=== PATIENT | female | born 1970 | race African-American/Black ===

== ENCOUNTER → 2021-02-16 08:31 | Outpatient (BNVA) | payer OTHER, SELFPAY | PROVIDERS: PCP Internal Medicine; Visit Provider Surgery ==

== ENCOUNTER → 2021-02-21 07:31 | Outpatient (BNVA) | payer OTHER, SELFPAY | PROVIDERS: PCP Internal Medicine; Visit Provider Surgery ==

== ENCOUNTER 2021-02-23 08:52 | Outpatient (REF) | payer OTHER, SELFPAY ==
--- NOTE | ~2021-02-23 | XR_ITS ---
EXAMINATION: XR CHEST CLINICAL INFORMATION: Obesity COMPARISON: None TECHNIQUE: 2 views of the chest were obtained. FINDINGS: The cardiac silhouette is slightly enlarged. Hilar and mediastinal contours are unremarkable. The lungs are clear. There is no pleural effusion or pneumothorax. There is mild curvature of the midthoracic spine to the right and degenerative change. XR/XR chest 2V IMPRESSION: Slightly enlarged cardiac silhouette.
--- NOTE | 2021-02-23 09:02 | ECG_ITS ---
Test Reason : OBESITY Blood Pressure : / mmHG Vent. Rate : 068 BPM Atrial Rate : 068 BPM P-R Int : 150 ms QRS Dur : 086 ms QT Int : 392 ms P-R-T Axes : 036 053 031 degrees QTc Int : 416 ms Normal sinus rhythm with sinus arrhythmia Minimal voltage criteria for LVH, may be normal variant Nonspecific T wave abnormality Abnormal ECG No previous ECGs available Referred By: Thomas Campa Electronically Signed By:DOYLE PATRICIA MD
== END 2021-02-23 08:53 | disposition home or self-care (01) ==
LOC: HO.LAB 08:52
PROVIDERS: PCP Registered Nurse; Visit Provider Surgery
DX: E03.9 Hypothyroidism, unspecified (principal); E66.9 Obesity, unspecified; I10 Essential (primary) hypertension; Z68.38 Body mass index [BMI] 38.0-38.9, adult
CPT/HCPCS: 71046; 93005

== ENCOUNTER 2021-03-03 08:42 | Outpatient (REF) | payer OTHER, SELFPAY ==
[2021-03-04 13:36] LABS: H Pylori Breath Test NOT DETECTED (NOT DETECTED)
== END 2021-03-03 08:43 | disposition home or self-care (01) ==
LOC: HO.LNP 08:42
PROVIDERS: Physician Assistant; PCP Registered Nurse; Visit Provider Physician Assistant
DX: E66.9 Obesity, unspecified (principal); Z11.0 Encounter for screening for intestinal infectious diseases
CPT/HCPCS: 83013

== ENCOUNTER → 2021-03-14 08:20 | Outpatient (BNVA) | payer OTHER, SELFPAY | PROVIDERS: PCP Registered Nurse; Visit Provider Surgery ==

== ENCOUNTER 2021-03-16 08:19 | Outpatient (REF) | payer OTHER, SELFPAY ==
--- NOTE | ~2021-03-16 | FL_ITS ---
EXAMINATION: XR GI SERIES CLINICAL INFORMATION: Obesity unspecified. COMPARISON: None TECHNIQUE: The patient was given effervescent granules mixed with water which was followed by thick and thin preparations of barium for double contrast evaluation. FINDINGS: The esophageal mucosal pattern is normal without delay in transit of barium. The gastric mucosal fold pattern is normal. The duodenal bulb and sweep are normal in appearance. There is a small hiatal hernia with an associated Schatzki ring. A large amount of gastroesophageal reflux was elicited with water siphonage to the level of the clavicular head. FLUOROSCOPY TIME: 2 minutes DOSE: 162.1 mGy FL/FL upper GI series IMPRESSION: Small hiatal hernia with a Schatzki ring. Large amount of gastroesophageal reflux with water siphonage.
--- NOTE | ~2021-03-16 | US_ITS ---
EXAMINATION: US COMPLETE ABDOMEN WITH LIVER ELASTOGRAPHY CLINICAL INFORMATION: COMPARISON: None. TECHNIQUE: Real-time imaging of the abdominal viscera. Noninvasive ultrasound liver fibrosis assessment is performed using Radha ElastPQ point quantification shear wave elastography (pSWE) with a C5-2 MHz transducer. Multiple elastography samples are obtained. FINDINGS: PANCREAS: Normal. The visualized pancreatic head and body are normal in appearance. The remainder of the pancreas is obscured from visualization by the overlying bowel gas. ABDOMINAL AORTA: The proximal, middle, and distal aortic segments are normal in caliber. INFERIOR VENA CAVA: Visualized portions are normal. LIVER: Liver echotexture is slightly increased. The liver is normal in size and contour. There are 2 small echogenic densities suggestive of calcifications in the left lobe. No other focal liver lesion is seen. There is no intrahepatic biliary duct dilatation. The right lobe measures 16.4 cm in length. The left lobe measures 11.8 cm in length. Portal flow is normal/hepatopedal Shear wave liver elastography median stiffness is 1.2 m/s (reference: normal median stiffness is 1.3 m/s or less). IQR/median stiffness to assess sampling precision is 0.13 (reference: good quality data set is IQR/median stiffness of 0.15 or less). GALLBLADDER: Gallbladder is normal in size. There are small gallstones seen in the gallbladder. There is a 1.5 x 1.2 x 1.3 cm hypoechoic lobulated lesion seen in the gallbladder. This does not move appears adherent to a gallbladder fold. This demonstrates internal vascularity and is adjacent to a echogenic focus questionable for calcification/stone. Internal vascularity makes bile sludge unlikely. Possible gallbladder wall polyp or mass should be considered. The gallbladder wall does not appear thickened. There is no pericholecystic fluid. COMMON BILE DUCT: Normal in caliber measuring 0.6 cm in diameter. RIGHT KIDNEY: Normal. No hydronephrosis. No renal calculi or focal parenchymal lesions. The kidney measures 10.9 cm in maximum dimension. LEFT KIDNEY: Normal. No hydronephrosis. No renal calculi or focal parenchymal lesions. The kidney measures 11.6 cm in maximum dimension. SPLEEN: Normal. The spleen measures 8 cm in maximum dimension. FREE FLUID: None. US/US abdomen comp w elastography IMPRESSION: 1. Slightly echogenic liver probably representing fatty infiltration. Gallstones. 1.5 x 1.2 x 1.3 cm lobulated hypoechoic lesion with internal vascularity adjacent to a gallbladder fold. Ultrasound appearance is concerning for large polyp or mass. Follow-up CT or MRI with and without contrast is recommended. 2. Liver elastography: Normal. REFERENCE: Society of Radiologists in Ultrasound Liver Stiffness Thresholds (2020): LIVER STIFFNESS THRESHOLDS: *Liver Stiffness equal or less than 1.3 m/s: High probability of being normal. *Liver Stiffness less than 1.7 m/s: In the absence of other known clinical signs, rules out compensated advanced chronic liver disease. *Liver Stiffness 1.7-2.1 m/s: Suggestive of compensated advanced chronic liver disease but need further test for confirmation. *Liver Stiffness over 2.1 m/s: Rules in compensated advanced chronic liver disease. *Liver Stiffness over 2.4 m/s: Suggestive of clinically significant portal hypertension. QUALITY OF DATA SET: *IQR/Median value equal or less than 0.15 implies a quality data set. *IQR/Median value over 0.15 implies a poor quality data set. SIGNIFICANT CHANGE FROM PRIOR EXAM: Significant change if liver stiffness measurement is 10% or greater from prior exam. OTHER CONSIDERATIONS: The stage of liver fibrosis may be overestimated in the setting of acute hepatitis, liver inflammation, elevated liver function tests, hepatic vascular congestion, obstructive cholestasis, non-fasting state, and infiltrative diseases such as amyloidosis and lymphoma. In some patients with NAFLD, the liver stiffness thresholds for compensated advanced chronic liver disease may be lower. In causes other than viral hepatitis and NAFLD, liver stiffness thresholds are not well established.
== END 2021-03-16 08:20 | disposition home or self-care (01) ==
LOC: HO.US 08:19
PROVIDERS: Visit Provider Surgery
DX: Z01.818 Encounter for other preprocedural examination (principal); E66.01 Morbid (severe) obesity due to excess calories; Z68.38 Body mass index [BMI] 38.0-38.9, adult; E03.9 Hypothyroidism, unspecified; I10 Essential (primary) hypertension; Z71.3 Dietary counseling and surveillance
CPT/HCPCS: 74240; 76705; 76981; 97802

== ENCOUNTER → 2021-03-18 09:52 | Outpatient (REF) | payer OTHER, SELFPAY ==
--- NOTE | 2021-03-18 10:02 | CA_ITS ---
Acquisition Time: 2021-03-18 10:12:57 Total Exercise Time: 00:04:23 Test Indications: PREOP, ABN EKG Medications: Protocol: EMMA Max HR: 151 BPM 87% of Pred: 172 BPM Max BP: 168/088 mmHG Max Work Load: 6.2 METS Exercise stress test with exercise 4 min 23 sec of Emma protocol with mild sob, no chest discomfort, without arrythmia, with normotensive response to exercise, with borderline EKG changes inferiorly. Test reviewed with Dr Nieto Recommend exercise nuclear stress test for further evaluation. Msg sent to Dr Raza. Referred By: Thomas Campa Overread By: BILL MUELLER
[2021-03-18 11:49] LABS: Blood Urea Nitrogen 12 mg/dL (9-16); Estimated Glomerular Filt Rate > 60
== END ==
LOC: HO.CARD 09:52
PROVIDERS: Absent Provider Physician Assistant; PCP Internal Medicine; Visit Provider Surgery
DX: Z01.818 Encounter for other preprocedural examination (principal); R06.02 Shortness of breath; I11.9 Hypertensive heart disease without heart failure; R94.31 Abnormal electrocardiogram [ECG] [EKG]; D49.0 Neoplasm of unspecified behavior of digestive system
CPT/HCPCS: 36415; 82565; 84520; 93017; 93018

== ENCOUNTER 2021-03-21 09:09 | Outpatient (REF) | payer OTHER, SELFPAY ==
--- NOTE | ~2021-03-21 | CT_ITS ---
EXAMINATION: CT ABDOMEN AND PELVIS WITH CONTRAST CLINICAL INFORMATION: Neoplasm/unspecified behavior of digestive system. Question gallbladder mass or polyp. COMPARISON: Ultrasound abdomen 03/16/2021 TECHNIQUE: Multidetector volumetric images were obtained from the superior aspect of the liver through the pubic symphysis following administration 85 mL of Omnipaque 350 intravenous contrast. Sagittal and coronal reformatted images were obtained on the technologist's workstation. Oral contrast: No. This CT examination was performed using dose optimization techniques as appropriate, variously including the following: *Automated exposure control *Adjustment of mA and/or kV according to patient size (this includes techniques or standardized protocols for targeted exams where dose is matched to indication/reason for exam; i.e. extremities or head) *Use of iterative reconstruction technique DLP: 559 mGy-cm FINDINGS: LUNG BASES: There are mild atelectatic changes in the left lung base. The heart size is normal. LIVER, GALLBLADDER, AND BILIARY TREE: The liver is normal in size, shape, and attenuation. No focal hepatic lesion or biliary ductal dilatation is present. There is a nonmobile 1.5 cm lesion along the posterior gallbladder wall in a nondependent position, question polyp or mass. There is minimal wall thickening on sagittal image 76/6. There is a punctate 1.4 cm hypodense area along the anterior gallbladder wall on axial image 26/30, question small stone. PANCREAS: Unremarkable. SPLEEN: The spleen is unremarkable. There is a small accessory splenule along the anterior hilum. ADRENAL GLANDS: Unremarkable. KIDNEYS AND URETERS: The kidneys are normal in size, shape, and attenuation. No hydronephrosis, hydroureter, or calculi seen. No perinephric stranding. BLADDER: Unremarkable. GASTROINTESTINAL TRACT: There is scattered stool, oral contrast and gas seen throughout the colon without any significant distention. There is nonspecific mild mural thickening involving a proximal small bowel segment on axial image 30 through 37/3. The small bowel loops are normal caliber. Appendix is not seen well. Small shotty lymph nodes are seen in the right ileocecal junction. ABDOMINAL WALL: No significant hernia is appreciated. LYMPH NODES: Normal. VASCULAR: Unremarkable. PELVIC VISCERA: There is an anteverted uterus with an IUD well located within fundal endometrium. There is a 2.4 x 2.4 cm cyst and a smaller 2.1 cm cyst of the right ovary. There is no free fluid in the pelvis. OSSEOUS STRUCTURES: No lytic or sclerotic process seen. CT/CT abdomen pelvis w con IMPRESSION: 1.5 cm lesion along the posterior gallbladder wall, likely polyp or mass, cannot be excluded. There is mild posterior wall thickening. In addition, there is a hypodense lesion, probable small stone, along the anterior gallbladder wall. Anteverted uterus with an IUD in the fundal endometrium. Two right ovarian cysts. Nonspecific mild mural thickening proximal ureteral segment. Question peristalsis or inflammatory process. The rest of the small bowel loops and colon is unremarkable.
[2021-03-21] MEDS: iohexoL 350 MG/ML 100 ML INFUS..BTL IV (11:59)
== END 2021-03-21 09:10 | disposition home or self-care (01) ==
LOC: HO.CT 09:09
PROVIDERS: Visit Provider Surgery
DX: D49.0 Neoplasm of unspecified behavior of digestive system (principal)
CPT/HCPCS: 74177; Q9967

== ENCOUNTER → 2021-04-04 08:14 | Outpatient (BNVA) | payer OTHER, SELFPAY | PROVIDERS: PCP Internal Medicine; Visit Provider Surgery ==

== ENCOUNTER → 2021-04-07 08:12 | Outpatient (BNVA) | payer OTHER, SELFPAY | PROVIDERS: PCP Registered Nurse; Visit Provider Dietitian, Registered ==

== ENCOUNTER → 2021-04-22 08:38 | Outpatient (BNVA) | payer OTHER, SELFPAY | PROVIDERS: PCP Registered Nurse; Visit Provider Dietitian, Registered | DX: E66.9 Obesity, unspecified (principal) | CPT/HCPCS: 97803 ==

== ENCOUNTER → 2021-04-28 08:05 | Outpatient (BNVA) | payer OTHER, SELFPAY | PROVIDERS: PCP Registered Nurse; Visit Provider Surgery ==

== ENCOUNTER → 2021-05-05 10:40 | Outpatient (REF) | payer OTHER, SELFPAY ==
--- NOTE | 2021-05-05 10:46 | CA_ITS ---
Transthoracic Echocardiogram Patient (Last, First, Middle): Melvin Lezama, Gender: Female Date of : 1970 Age: 50 Procedure Date: 05/05/2021 Procedure Type: Transthoracic Echocardiogram Location: OP Height: 162.56 cm Weight: 93.44 kg BSA: 1.98 m2 Heart Rate: bpm BP: 110 / 72 mmHg Brake Reliner: Referring MD: Thomas Campa MD Symptoms: R94.31 - Abnormal electrocardiogram [ECG] [EKG] Study Quality: Good ECG Rhythm: Sinus Conclusions: - The left ventricular systolic function is normal. The visually estimated ejection fraction is between 55-60%. - There is mild mitral valve regurgitation. Findings Left Ventricle Normal left ventricular cavity size. There is normal left ventricular wall thickness. The left ventricular systolic function is normal. The visually estimated ejection fraction is between 55-60%. There is no evidence of regional wall motion abnormalities. Diastolic function is normal for age. Right Ventricle Normal right ventricular cavity size and systolic function. Atria Both atria are normal in size. Aortic Valve There is a normal trileaflet aortic valve. There is no aortic valve stenosis. There is trace (trivial) aortic valve regurgitation. Mitral Valve There is mild anterior mitral leaflet thickening. There is mild mitral valve regurgitation. There is no mitral valve stenosis. Pulmonic Valve The pulmonic valve was not well visualized. Tricuspid Valve Normal tricuspid valve structure. There is trace tricuspid valve regurgitation. The pulmonary artery systolic pressure is normal. Great Vessels The aortic annulus, sinuses of valsalva, and asc aorta are normal in size. Venous The inferior vena cava is normal in size and collapses greater than 50% with inspiration. Pericardium/Pleural There is a trivial pericardial effusion. Prior Study Comparison No prior study available for comparison. Measurements 2D Linear Measurements RVIDd: 3.39 RVIDd Index: 1.71 IVSd: 0.90 0.6-0.9/0.6-1.0 cm LVIDd: 5.31 3.9-5.3/4.2-5.9 cm LVIDd Index: 2.68 2.4-3.2/2.2-3.1 cm/m2 LVIDs: 3.47 2.0-3.6 cm LVPWd: 1.18 0.7-1.1 cm Ao Root: 2.70 2.1-3.5 cm LA Diam: 4.50 2.7-3.8/3.0-4.0 cm LAIDs Index: 2.27 1.5-2.3 cm/m2 LV Mass: 263.17 67-162/88-224 g LV Mass Index: 132.91 43-95/49-115 g/m2 LVOT Diam: 2.20 3.0+(-)1.3 cm 2D Systolic Function EF 4C: 60.60 >55% EF 2C: 57.10 >55% EF BiP: 57.90 >55% Mitral Valve MV Pk E: 1.11 MV PK A: 1.02 MV Decel Time: 223.00 E/A: 1.10 E'Lateral: 5.22 E'Medial: 5.00 E/E' Med: 22.20 E/E' Lat: 21.30 MR Vol - PW Dopp: 34.00 MR VTI: 1.70 MR ERO: 20.00 MR Alias Yovanny: 0.32 MR RAD: 0.70 Aortic Valve AoV Pk Yovanny: 1.74 AoV Mn Yovanny: 1.21 AoV VTI: 0.39 AoV Pk Grad: 12.00 Aov Mn Grad: 7.00 BERNA[place]TE Cont.VTI: 2.32 AI Pk Yovanny: 4.15 AI [place]: 0.99 LVOT LVOT Pk Yovanny: 1.11 LVOT Mn Yovanny: 0.78 LVOT VTI: 0.24 LVOT Pk Grad: 5.00 LVOT Mn Grad: 3.00 LVOT Diam: 2.20 LVOT Area: 3.80 Diastolic Function MV Pk E: 1.11 MV Pk A: 1.02 E/A: 1.10 E'Medial: 5.00 E/E' Med: 22.20 E' Laterial: 5.22 E/E' Lat: 21.30 Tricuspid Valve TR Pk Yovanny: 2.28 TR Pk Grad: 21.00 Great Vessels Aorta Ao Root-2D: 2.70 2.0-3.7 cm Ao Asc: 3.30 2.1-3.4 cm Ao Arch: 2.70 Updated in Other Vendor System with Status of Final Camron Kumar MD electronically signed on 05/06/2021 12:45:25 PM with status of Final
[2021-05-05 12:35] LABS: MANUAL DIFF FLAG NO
[2021-05-05 12:44] LABS: Basophils Absolute Auto 0.1 X10*3/uL (0.0-0.2); Basophils Percent Auto 0.8 % (0-2); Eosinophils Absolute Auto 0.1 X10*3/uL (0.0-0.4); Eosinophils Percent Auto 0.9 % (0-4); Hematocrit 38.5 % (37-47); Hemoglobin 12.3 g/dl (12.0-16.0); Imm Gran Abs Auto 0.02 X10*3/uL (0.00-0.03); Imm Gran Pct Auto 0.3 % (0.0-0.4); Lymphocytes Absolute Auto 2.3 X10*3/uL (1.2-4.9); Lymphocytes Percent Auto 35.4 % (20-40); Mean Corpuscular HGB Conc 31.9 g/dl (31.0-35.0); Mean Corpuscular Hemoglobin 26.4 pg (27.0-33.0); Mean Corpuscular Volume 82.6 fL (80-98); Mean Platelet Volume 10.2 fL (9.4-12.3); Monocytes Absolute Auto 0.4 X10*3/uL (0.1-1.2); Monocytes Percent Auto 5.8 % (2-11); Neutrophils Absolute Auto 3.7 X10*3/uL (2.0-8.3); Neutrophils Percent Auto 56.8 % (45-73); Platelet Count 300 X10*3/uL (160-400); Red Blood Count 4.66 X10*6/uL (4.20-5.50); Red Cell Distribution Width 15.4 % (11.0-16.0); White Blood Count 6.5 X10*3/uL (4.8-10.8)
[2021-05-05 12:49] LABS: Prothrombin Time 11.7 SEC (10.8-13.0)
[2021-05-05 12:50] LABS: Estimated Average Glucose 114 mg/dL; Hemoglobin A1c % 5.6 %
[2021-05-05 12:52] LABS: Partial Thromboplastin Time 38.3 SEC (24.1-38.0)
[2021-05-05 13:15] LABS: Alanine Aminotransferase 38 U/L (0-31); Albumin Level 4.3 g/dL (3.5-5.0); Alkaline Phosphatase 80 U/L (39-117); Anion Gap 13 (12-20); Aspartate Amino Transferase 24 U/L (5-31); Blood Urea Nitrogen 14 mg/dL (9-16); C Reactive Protein 1.22 mg/dL (< or = 0.50); Calcium 9.7 mg/dL (8.4-10.2); Carbon Dioxide 30 mmol/L (22-29); Chloride 102 mmol/L (96-108); Cholesterol 199 mg/dL; Estimated Glomerular Filt Rate > 60; Glucose Random 95 mg/dL (60-115); HDL Cholesterol 89 mg/dL; LDL Cholesterol Calculated 99 mg/dl; Potassium 3.3 mmol/L (3.3-5.1); Sodium 142 mmol/L (135-145); Total Protein 7.9 g/dL (6.5-8.0); Triglycerides 57 mg/dL
[2021-05-05 13:35] LABS: Ferritin 195 ng/mL (10-250); TSH reflex Free T4 1.99 uIU/mL (0.32-4.0); Vitamin D 25-OH Total 38.7 ng/mL (>30)
[2021-05-05 13:41] LABS: Folate 5.2 ng/mL (> or = 4.0); Vitamin B12 767 pg/mL (200-900)
[2021-05-06 14:11] LABS: Calcium (PTHI) 9.7 mg/dL (8.6-10.2); PTHI 68 pg/mL (14-64)
[2021-05-06 19:04] LABS: Insulin Level Total 18.2 uIU/mL
[2021-05-08 17:27] LABS: Zinc 72 mcg/dL (60-130)
[2021-05-11 01:27] LABS: Vitamin A 48 mcg/dL (38-98)
[2021-05-13 06:57] LABS: Vitamin B1 <6 nmol/L (8-30)
== END ==
LOC: HO.CARD 10:40
PROVIDERS: Visit Provider Surgery
DX: Z01.818 Encounter for other preprocedural examination (principal); E66.9 Obesity, unspecified; E03.9 Hypothyroidism, unspecified; I10 Essential (primary) hypertension; K80.20 Calculus of gallbladder without cholecystitis without obstruction; R06.02 Shortness of breath; Z68.38 Body mass index [BMI] 38.0-38.9, adult
CPT/HCPCS: 36415; 80053; 80061; 82306; 82607; 82728; 82746; 83036; 83525; 83970; 84425; 84443; 84590; 84630; 85025; 85610; 85730; 86140; 93306

== ENCOUNTER → 2021-05-10 08:06 | Outpatient (REF) | payer OTHER, SELFPAY ==
--- NOTE | ~2021-05-10 | NM_ITS ---
Lexiscan Myocardial perfusion study Indication: Abnormal stress test Technique: The patient was brought in for a Lexiscan perfusion study on 05/10/2021 and was injected 0.4 mg of Lexiscan intravenously. Within a minute of this injection 30 mCi of sestamibi was given intravenously. Images were obtained using the SPECT gamma camera interlaced with the gating device. Images were obtained in supine position. Resting perfusion study was performed on 05/11/2021. Patient was administered 30 mCi of sestamibi intravenously at rest. Images were then obtained in supine position. Total DLP 120mGy-cm. Images were processed with the software and compared side to side in short axis, horizontal long axis and vertical long axis views. Findings: Raw acquisition was reviewed. The stress perfusion study showed mildly diminished tracer uptake along the anterior wall and apex. With CT attenuation correction, there is improvement in tracer uptake and hence suggesting soft tissue attenuation artifact. The gated study shows low normal LV systolic function with calculated LVEF of 52%. LV cavity is normal in size. The gated study shows normal wall thickening and contraction of segments. Resting study shows no significant perfusion abnormality. Gating at rest reveals normal wall motion with ejection fraction at 54%. The findings are consistent with no definite reversible or fixed defects. MT/MT cardiolite stress test Impression: 1. Myocardial perfusion imaging study shows likely normal myocardial perfusion. No definitive evidence of any ischemia or infarction. 2. Gated LVEF is 52% during stress and 54% during rest. Correlate with echocardiogram. 3. Transient ischemic dilatation not present. EKG component of the test reported separately.
--- NOTE | 2021-05-10 08:10 | CA_ITS ---
Acquisition Time: 2021-05-10 08:15:00 Total Exercise Time: 00:02:00 Test Indications: Abnormal Treadmill Test Medications: SEE CHART Protocol: LEXISCAN Max HR: 130 BPM 75% of Pred: 172 BPM Max BP: 152/092 mmHG Max Work Load: 1.6 METS Pharmacological stress test with Lexiscan injection, while walking on treadmill without anginal symptoms, with one PVC, with normotensive response to injection, with nondiagnostic EKG for ischemia. Nuclear images pending. Test reviewed with Dr Nieto. Referred By: Thomas Campa Overread By: BILL MUELLER
== END ==
LOC: HO.CARD 08:06
PROVIDERS: Visit Provider Surgery
DX: R94.39 Abnormal result of other cardiovascular function study (principal)
CPT/HCPCS: 78452; 93017; A9500; J0280; J2785

== ENCOUNTER 2021-06-02 12:39 | Day surgery (SDC) | payer OTHER, SELFPAY ==
[2021-05-27 15:11] VITALS: BMI 38.5
[2021-05-28 08:50] LABS: Basophils Percent Auto 0.4 % (0-2); Eosinophils Absolute Auto 0.1 X10*3/uL (0.0-0.4); Eosinophils Percent Auto 1.6 % (0-4); Hematocrit 37.3 % (37-47); Hemoglobin 11.9 g/dl (12.0-16.0); Imm Gran Abs Auto 0.02 X10*3/uL (0.00-0.03); Imm Gran Pct Auto 0.3 % (0.0-0.4); Lymphocytes Absolute Auto 2.6 X10*3/uL (1.2-4.9); Lymphocytes Percent Auto 33.4 % (20-40); MANUAL DIFF FLAG NO; Mean Corpuscular HGB Conc 31.9 g/dl (31.0-35.0); Mean Corpuscular Hemoglobin 26.6 pg (27.0-33.0); Mean Corpuscular Volume 83.3 fL (80-98); Mean Platelet Volume 10.5 fL (9.4-12.3); Monocytes Absolute Auto 0.6 X10*3/uL (0.1-1.2); Monocytes Percent Auto 7.9 % (2-11); Neutrophils Absolute Auto 4.3 X10*3/uL (2.0-8.3); Neutrophils Percent Auto 56.4 % (45-73); Platelet Count 273 X10*3/uL (160-400); Red Blood Count 4.48 X10*6/uL (4.20-5.50); Red Cell Distribution Width 15.2 % (11.0-16.0); White Blood Count 7.6 X10*3/uL (4.8-10.8)
[2021-05-28 09:25] LABS: Alanine Aminotransferase 27 U/L (0-31); Albumin Level 3.9 g/dL (3.5-5.0); Alkaline Phosphatase 68 U/L (39-117); Anion Gap 13 (12-20); Aspartate Amino Transferase 16 U/L (5-31); Bilirubin Total 0.8 mg/dL (0.0-1.0); Blood Urea Nitrogen 11 mg/dL (9-16); Calcium 9.3 mg/dL (8.4-10.2); Carbon Dioxide 30 mmol/L (22-29); Chloride 100 mmol/L (96-108); Creatinine Clr Calc Pharmacy 94.7; Estimated Glomerular Filt Rate > 60; Glucose Random 93 mg/dL (60-115); Potassium 3.4 mmol/L (3.3-5.1); Sodium 140 mmol/L (135-145); Total Protein 7.3 g/dL (6.5-8.0)
--- NOTE | 2021-06-01 08:41 | P.CONAN_ITS ---
Documented by User: Erica Meek 06/01/21 08:46 HPI - Anesthesia Eval Consult details Narrative: 50yo F for Cholecystectomy Laparoscopic PMFSH Active Problems Active Problems: All Active Problems (Updated 04/28/21 @ 11:34 by Thomas Campa MD) Cholelithiasis (Acute) Abnormal stress test (Acute) Morbid obesity (Acute) Adjustment disorder, unspecified (Acute) Gallbladder neoplasm (Acute) Cardiomegaly (Acute) Abnormal EKG (Acute) Vitamin B12 deficiency (Acute) Vitamin D deficiency (Acute) Panniculitis (Acute) Hypothyroidism (Acute) Back pain (Acute) Hypertension (Acute) BMI 38.0-38.9,adult (Acute) Obesity (Acute) Past Medical History Medical History Back pain Cholelithiasis Hypertension Hypothyroidism Morbid obesity Obesity Panniculitis Family History Family History Mother Diabetes Hypertension Breast cancer Father No problems noted. Sister No problems noted. Sister Hypertension Brother No problems noted. Son No problems noted. Son No problems noted. Daughter No problems noted. Daughter No problems noted. Surgical History Surgical History Hx of section Hx of toe surgery Social History Social History Patient Tobacco Use Status: Never used Tobacco Use of substances other than those prescribed or required for medical reasons: No Have you been hit, kicked, punched, or otherwise hurt by someone within the past year? If so, by whom?: No Are you DNR?: No Advance Directives Information Provided: No Meds Allergies Allergy/AdvReac Type Severity Reaction Status Date / Time lisinopril Allergy Severe cough Verified 02/21/21 12:27 Penicillins Allergy Severe hives Verified 02/21/21 12:27 Seasonal Allergies Allergy Severe itching Verified 02/21/21 12:27 Home Medications Medication Instructions Recorded Confirmed Last Taken Type amlodipine 5 mg tablet 5 mg PO DAILY 02/21/21 05/27/21 Unknown History cetirizine 10 mg tablet 10 mg PO DAILY 02/21/21 05/27/21 Unknown History hydrochlorothiazide 25 mg tablet 25 mg PO DAILY 02/21/21 05/27/21 Unknown History labetalol 200 mg tablet 200 mg PO BID 02/21/21 05/27/21 Unknown History levothyroxine 175 mcg tablet 175 mcg PO DAILY 02/21/21 05/27/21 Unknown History nystatin 100,000 unit/gram topical TOPICAL 02/21/21 04/28/21 Unknown History cream Exam Exam Date and Time: June 01, 2021 0841 Height,Weight and Vital Signs: Height 5 ft 1.5 in Weight 94.064 kg Pertinent Lab Results Pertinent Lab Results: Laboratory Tests 05/28/21 05/28/21 05/28/21 07:51 07:51 07:51 WBC 7.6 RBC 4.48 Hgb 11.9 L Hct 37.3 MCV 83.3 MCH 26.6 L MCHC 31.9 RDW 15.2 Plt Count 273 MPV 10.5 Immature Gran % (Auto) 0.3 Neut % (Auto) 56.4 Lymph % (Auto) 33.4 [place] % (Auto) 7.9 Eos % (Auto) 1.6 Baso % (Auto) 0.4 Lymph # (Auto) 2.6 [place] # (Auto) 0.6 Eos # (Auto) 0.1 Baso # (Auto) 0.0 Abs Immat Gran (auto) 0.02 Absolute Neuts (auto) 4.3 Absolute Nucleated RBC 0.000 Nucleated RBC % (auto) 0.0 Sodium 140 Potassium 3.4 Chloride 100 Carbon Dioxide 30 H Anion Gap 13 BUN 11 Creatinine 0.76 Estim Creat Clear Calc 94.7 Estimated GFR > 60 Random Glucose 93 Calcium 9.3 Total Bilirubin 0.8 AST 16 ALT 27 Alkaline Phosphatase 68 Total Protein 7.3 Albumin 3.9 Blood Type A Positive Antibody Screen NEGATIVE Narrative Narrative: EKG 02/2021 Vent. Rate : 068 BPM Atrial Rate : 068 BPM P-R Int : 150 ms QRS Dur : 086 ms QT Int : 392 ms P-R-T Axes : 036 053 031 degrees QTc Int : 416 ms Normal sinus rhythm with sinus arrhythmia Minimal voltage criteria for LVH, may be normal variant Nonspecific T wave abnormality Abnormal ECG No previous ECGs available NM cardiolite stress test 04/2021 Impression: 1. Myocardial perfusion imaging study shows likely normal myocardial perfusion. No definitive evidence of any ischemia or infarction. 2. Gated LVEF is 52% during stress and 54% during rest. Correlate with echocardiogram. 3. Transient ischemic dilatation not present. EKG component of the test is nondiagnostic. ECHO 04/2021 Conclusions: - The left ventricular systolic function is normal. The visually estimated ejection fraction is between 55-60%. - There is mild mitral valve regurgitation. Assessment and Plan Assessment Anesthesia Assessment: Chart Reviewed Documented by User: Erik Alejandre MD 06/02/21 15:16 PMFSH Past Medical History Medical History Back pain Cholelithiasis Hypertension Hypothyroidism Morbid obesity Obesity Panniculitis Family History Family History Mother Diabetes Hypertension Breast cancer Father No problems noted. Sister No problems noted. Sister Hypertension Brother No problems noted. Son No problems noted. Son No problems noted. Daughter No problems noted. Daughter No problems noted. Surgical History Surgical History Hx of section Hx of toe surgery Social History Social History Patient Tobacco Use Status: Never used Tobacco Use of substances other than those prescribed or required for medical reasons: No Have you been hit, kicked, punched, or otherwise hurt by someone within the past year? If so, by whom?: No Are you DNR?: No Advance Directives Information Provided: No Meds Allergies Allergy/AdvReac Type Severity Reaction Status Date / Time lisinopril Allergy Severe cough Verified 02/21/21 12:27 Penicillins Allergy Severe hives Verified 02/21/21 12:27 Seasonal Allergies Allergy Severe itching Verified 02/21/21 12:27 Home Medications Medication Instructions Recorded Confirmed Last Taken Type amlodipine 5 mg tablet 5 mg PO DAILY 02/21/21 05/27/21 Unknown History cetirizine 10 mg tablet 10 mg PO DAILY 02/21/21 05/27/21 Unknown History hydrochlorothiazide 25 mg tablet 25 mg PO DAILY 02/21/21 05/27/21 Unknown History labetalol 200 mg tablet 200 mg PO BID 02/21/21 05/27/21 Unknown History levothyroxine 175 mcg tablet 175 mcg PO DAILY 02/21/21 05/27/21 Unknown History nystatin 100,000 unit/gram topical TOPICAL 02/21/21 04/28/21 Unknown History cream Exam Airway Mallampati Class: II TM Dist: >3cm Neck ROM: Full Loose/Missing/Broken Teeth: No Assessment and Plan Assessment Anesthesia Assessment: Anesthesia Plan Discussed and Chart Reviewed Final Anesthetic Review NPO: Yes ASA Class: III Final Preanesthetic Review: No Changes in Pt Med Stat, Meds/Allgs Chart Reviewed, Consent Obtained/Reviewed and Anes Risks/Benef Reviewed Patient Risk: High Procedure Risk: Intermediate Anesthetic Plan Anesthetic Plan: GA Disposition: Standard PACU
--- NOTE | 2021-06-01 23:17 | MHC.SHP ---
Pre-Procedural Eval Section A Date of Service: 06/01/21 The patient is an INPATIENT: No The History & Physical has been completed within 30 days and I have reviewed it.: Yes Section B Chief Complaint: calculus of gallbladder Details of Present Illness: cholelithiasis and gallbladder tumor Relevant Family History (Specify if Yes): No Relevant Social History: None Present Medications: see Short Stay Collaborative assessment Medical History: No relevant PMH History of Previous Operations: No relevant previous surgery Allergies: Allergies Allergy/AdvReac Type Severity Reaction Status Date / Time lisinopril Allergy Severe cough Verified 02/21/21 12:27 Penicillins Allergy Severe hives Verified 02/21/21 12:27 Seasonal Allergies Allergy Severe itching Verified 02/21/21 12:27 Review of Systems Sugical H&P ROS: Negative: Constitution, Cardiovascular, Respiratory, Neurological, Psychiatric, Hem-Onc, Allergic/Immunologic, Gastrointestinal, Genitourinary, Musculoskeletal, Integumentary, Endocrine and Eyes/Ears/Nose/Throat Exam Surgical H&P Exam: Normal: HEENT, Normal: Heart, Normal: Lungs, Normal: Extremities, Normal: Abdomen, Normal: Skin and Normal: Neurological Plan Diagnosis/Plan: Unchanged (Lap rolando for cholelithiasis and gallbladder tumor) I have reviewed the history and physical and performed a pertinent physical examination on my patient. No changes have occurred unless specified.
[2021-06-02] VITALS (11 sets, daily range): BP systolic 129–148; BP diastolic 78–93; PULSE 70–85; RESP 14–18; TEMP 36.2–36.4; O2SAT 95–98
[2021-06-02 13:13] LABS: UPreg QC Valid YES; Urine Pregnancy NEGATIVE (NEGATIVE)
[2021-06-02 13:24] LABS: COVID-19 Test Negative (Negative)
[2021-06-02] MEDS: levoFLOXacin/D5W 500 MG/100 ML PIGGYBACK 100 MG IV (13:38)
[2021-06-02] MEDS: Lactated Ringers 1,000 ML 100 ML IVCONT (13:38)
--- NOTE | 2021-06-02 14:33 | PC.NURSE ---
PATIENT BROUGHT TO BED 14 IN PACU AND REPORT GIVEN TO SANDRA PHILLIP
--- NOTE | 2021-06-02 16:13 | P.BOP_ITS ---
Brief Operative Note Date of Service: 06/02/21 Pre-op diagnosis: Cholelithiasis and large gallbladder polyp Procedure: PROCEDURE DATE: 06/02/2021 PREOPERATIVE DIAGNOSIS: Symptomatic cholelithiasis, gallbladder mass, severe obesity with a body mass index of 38.7 kg/sq. meters and comorbidities including hypertension, hypothyroidism, diet-controlled diabetes, back pain POSTOPERATIVE DIAGNOSIS: Same as above. PROCEDURE: Laparoscopic cholecystectomy ? PLEASE REVIEW TO INCLUDE THIS PROCEDURE: and upper endoscopy Surgeon: Rohan Campa M.D., Ph.D. Electronic Page Makeup System Operator: Teodora Kaufman PA-C Anesthesia: General endotracheal anesthesia Estimated blood loss: Minimal FINDINGS AND PROCEDURE: OPERATIVE INDICATIONS: The patient is a 50 year old female known to me who was initially seen in my office for evaluation for refractory morbid obesity. During the preoperative workup, the patient was found to have cholelithiasis as well as a large gallbladder which was also confirmed by CT. I recommended cholecystectomy to assess this large polyp. Risks and complications of the surgery were discussed with the patient in advance, particularly the postoperative bleeding, infection, DVT or PE, bile leak, major bile duct injury that may require additional surgical intervention, cardiac, pulmonary or renal complications among others. The patient understood the risks and was in agreement with the plan. PROCEDURE: After informed consent was obtained by the patient, the patient was transferred to the Operating Room and was placed in the supine position. The patient was given preoperative antibiotics and after successful induction of general anesthesia a Hannah catheter and pneumatic compression devices were placed. The patient was then prepped and draped in the usual sterile manner and abdominal access was established with the Rashad technique. The abdomen was insufflated with C02 to a pressure of 15 mmHg. A 5 mm Versi-step port was placed, slightly to the right and superior from the umbilicus. The 5 mm camera was introduced. We inspected the area where the port had been placed and there was no injury. The patient was then placed initially in a steep reverse Trendelenburg position and three additional ports were placed, specifically a 12 mm Versi-step port just to the right of the midline below the xiphoid process and two 5 mm Versi-step ports at the right upper quadrant and right flank. At that point the patient was placed in a steep reverse Trendelenburg position tilted to the left side. The gallbladder was retracted cephalad and laterally. There were adhesions between the omentum and the gallbladder wall that were taken down. The peritoneal attachments of the gallbladder at the triangle of Calot posteriorly and anteriorly were taken down. The cystic duct and artery were both seen. They were completely dissected free, skeletonized all the way to the infundibulum of the gallbladder. In a similar fashion we also cleaned the liver bed just behind the cystic artery to make sure there was no additional structures in this area. Once we confirmed that both structures were entering into the gallbladder and there were no other structures in the area, they were both clipped with two clips proximally, one distally and were cut in- between. I then using the electrocautery we slowly took down the gallbladder from the liver bed. Small areas of bleeding from the liver parenchyma were controlled with the cautery. After the gallbladder was completely detached from the liver bed, it was placed in an EndoCatch bag and was removed without difficulty from the xiphoid port. I then inspected the clips at the cystic duct and artery and were both in place. There was no active bleeding from the liver bed. We thoroughly irrigated the right upper quadrant and we removed all fluid until clear. At that point the patient was placed in supine position, we deflated the abdomen and we removed all ports under direct vision and no bleeding was noted from any of the port sites. The fascia of the 12 mm port was closed using a #1 Polysorb suture. 60cc 0.25% Marcaine and 10% Dexamethasone were used to infiltrate the fascial closure as well as all skin incisions. The wounds were irrigated with saline mixed with antibiotic solution and then the skin was closed with 4-0 Monocryl subcuticular sutures antibiotic- coated. Steri-strips and OpSites were used to cover all incisions. The patient extubated and was transferred in stable condition to the Recovery Room for further care. I was present and performed all steps of the procedure. Ms. Kaufman was the respiratory therapy assistant. There were no residents to assist with this case. Rohan Campa M.D., Ph.D., F.A.C.S. Surgeon: Thomas Campa MD Anesthesia: GETA, local and other (TAP block) Was an Electronic Page Makeup System Operator used for this Procedure?: No Electronic Page Makeup System Operator: Teodora Kaufman Estimated blood loss (mL): 10 Urine output (mL): 0 (No Hannah to record) Pathology: other (Gallbladder) Condition: stable Disposition: PACU
[2021-06-02] MEDS: traMADoL HCL 50 MG TABLET PO (19:16)
== END 2021-06-02 19:48 | disposition home or self-care (01) ==
PROVIDERS: Nurse Practitioner; PCP Internal Medicine; Visit Provider Surgery
PROC: 0FT44ZZ Resection of Gallbladder, Percutaneous Endoscopic Approach (ICD-10-PCS; CPT 47562; principal; 2021-06-02 13:40)
DX: K80.10 Calculus of gallbladder with chronic cholecystitis without obstruction (principal); D13.1 Benign neoplasm of stomach; K82.8 Other specified diseases of gallbladder; E66.01 Morbid (severe) obesity due to excess calories; Z68.38 Body mass index [BMI] 38.0-38.9, adult; I10 Essential (primary) hypertension; E03.9 Hypothyroidism, unspecified; E11.9 Type 2 diabetes mellitus without complications; Z79.899 Other long term (current) drug therapy
CPT/HCPCS: 47562; 36415; 80053; 81025; 85025; 86850; 86900; 86901; 87635; 88304; J0131; J1100; J1956; J2250; J2370; J2405; J3010

== ENCOUNTER → 2021-06-10 12:01 | Outpatient (BNVA) | payer OTHER, SELFPAY | PROVIDERS: PCP Internal Medicine; Visit Provider Surgery ==